=== PATIENT | male | born 1995 | race Two or more races ===

== ENCOUNTER 2016-12-26 23:02 | Emergency (ER) | payer OTHER ==
[2016-12-26 23:11] VITALS: BP 138/62; PULSE 77; TEMP 98.6; BMI 22.3
--- NOTE | 2016-12-27 00:40 | PDOC ---
History of Present Illness - General History Source: Patient Exam Limitations: No Limitations - History of Present Illness Initial Comments: 12/27/16 01:28 21-year-old male with no medical history presents to the emergency department complaining of a sore throat times approximately one week without fever, chills , nausea/vomiting, rhinorrhea, difficulty swallowing, chest pain, shortness of breath, abdominal pains. Patient denies any drooling or muffle voice. Timing/Duration: 1 week Associated Symptoms: denies: cough, fever/chills <Saurabh Sykes - Last Filed: 12/27/16 01:27> <Cricket Hanna - Last Filed: 12/27/16 08:05> - General Chief Complaint: Sore Throat Stated Complaint: SORE THROAT Time Seen by Provider: 12/26/16 23:14 Past History - Past Medical History Anemia: No Asthma: No Cancer: No Cardiac Disorders: No CVA: No COPD: No CHF: No Dementia: No Diabetes: No GI Disorders: No Disorders: No HTN: No Hypercholesterolemia: No Kidney Stones: No Liver Disease: No Seizures: No Thyroid Disease: No - Surgical History Abdominal Surgery: No Appendectomy: No Cardiac Surgery: No Cholecystectomy: No Lung Surgery: No Neurologic Surgery: No Orthopedic Surgery: No - Reproductive History Testicular Surgery: No - Suicide/Smoking/Psychosocial Hx Smoking History: Current every day smoker Have you smoked in the past 12 months: Yes Number of Cigarettes Smoked Daily: 10 Cigars Per Day: 0 Information on smoking cessation initiated: No 'Breaking Loose' booklet given: 05/19/16 Hx Alcohol Use: Yes (2 beers daily) Drug/Substance Use Hx: Yes (Marijuana) Substance Use Type: Alcohol, Marijuana Hx Substance Use Treatment: No <Saurabh Sykes - Last Filed: 12/27/16 01:27> <Cricket Hanna - Last Filed: 12/27/16 08:05> - Past Medical History Allergies/Adverse Reactions: Allergies Allergy/AdvReac Type Severity Reaction Status Date / Time No Known Allergies Allergy Verified 12/26/16 23:09 Home Medications: Ambulatory Orders Amoxicillin/Potassium Clav [Augmentin 875-125 Tablet] 1 each PO BID #10 tablet 12/27/16 Amoxicillin/Potassium Clav [Augmentin 875-125 Tablet] 1 each PO BID #20 tablet 12/27/16 Review of Systems - Review of Systems Able to Perform ROS?: Yes Comments:: 12/27/16 01:28 CONSTITUTIONAL: Absent: fever, chills, diaphoresis, generalized weakness, malaise, loss of appetite HEENT: +throat pain Absent: rhinorrhea, nasal congestion, throat swelling, difficulty swallowing, mouth swelling, ear pain, eye pain, visual Changes CARDIOVASCULAR: Absent: chest pain, loss of consciousness, palpitations, irregular heart rate, peripheral edema RESPIRATORY: Absent: cough, shortness of breath, dyspnea with exertion, orthopnea, wheezing, stridor, hemoptysis GASTROINTESTINAL: Absent: abdominal pain, abdominal distension, nausea, vomiting, diarrhea, constipation, melena, hematochezia GENITOURINARY: Absent: dysuria, frequency, urgency, hesitancy, hematuria, flank pain, genital pain MUSCULOSKELETAL: Absent: myalgia, arthralgia, joint swelling SKIN: Absent: rash, itching, pallor HEMATOLOGIC/IMMUNOLOGIC: Absent: easy bleeding, easy bruising, lymphadenopathy, frequent infections Is the patient limited Congolese proficient: No <Saurabh Sykes - Last Filed: 12/27/16 01:27> *Physical Exam - Vital Signs Last Vital Signs Temp Pulse Resp BP Pulse Ox 98.6 F 77 19 138/62 99 12/26/16 23:09 12/26/16 23:09 12/26/16 23:09 12/26/16 23:09 12/26/16 23:09 - Physical Exam Comments: 12/27/16 01:29 GENERAL: Well developed, well nourished. Awake and alert. No acute distress. HEENT: B/L tonsils enlarged without erythema/exidate/abscess Normocephalic, atraumatic. PERRLA, EOMI. No conjunctival pallor. Sclera are non- icteric. Moist mucous membranes. NECK: Supple. Full ROM. No JVD. Carotid pulses 2+ and symmetric, without bruits. No thyromegaly. No lymphadenopathy. CARDIOVASCULAR: Regular rate and rhythm. No murmurs, rubs, or gallops. Distal pulses are 2+ and symmetric. PULMONARY: No evidence of respiratory distress. Lungs clear to auscultation bilaterally. No wheezing, rales or rhonchi. <Saurabh Sykes - Last Filed: 12/27/16 01:27> - Vital Signs Last Vital Signs Temp Pulse Resp BP Pulse Ox 98.6 F 77 19 138/62 99 12/26/16 23:09 12/26/16 23:09 12/26/16 23:09 12/26/16 23:09 12/26/16 23:09 <Cricket Hanna - Last Filed: 12/27/16 08:05> ED Treatment Course - ADDITIONAL ORDERS Additional order review: 12/26/16 23:14 Group A Strep Rapid Antigen - Final Throat <Saurabh Sykes - Last Filed: 12/27/16 01:27> - ADDITIONAL ORDERS Additional order review: 12/26/16 23:14 Group A Strep Rapid Antigen - Final Throat - Medications Given in the ED: ED Medications Discontinued Medications Generic Name Dose Route Start Last Admin Trade Name Franc PRN Reason Stop Dose Admin Amoxicillin/Clavulanate Potassium 1 tab 12/27/16 00:56 12/27/16 01:04 Augmentin - 875mg Tablet PO 12/27/16 00:57 1 tab ONCE ONE Administration Dexamethasone Sodium Phosphate 10 mg 12/27/16 00:56 12/27/16 01:04 Decadron Injection - IM 12/27/16 00:57 10 mg ONCE ONE Administration <Cricket Hanna - Last Filed: 12/27/16 08:05> Medical Decision Making - Medical Decision Making 12/27/16 08:05 The patient was seen and evaluated in conjunction with MIKEY Sykes under my direct supervision, ancillary studies were reviewed. I agree with the plan as outlined by MIKEY Sykes. <Cricket Hanna - Last Filed: 12/27/16 08:05> *DC/Admit/Observation/Transfer - Discharge Dispostion Admit: No <Saurabh Sykes - Last Filed: 12/27/16 01:27> <Cricket Hanna - Last Filed: 12/27/16 08:05> Diagnosis at time of Disposition: Tonsillitis - Discharge Dispostion Disposition: HOME Condition at time of disposition: Stable - Prescriptions Prescriptions: Amoxicillin/Potassium Clav [Augmentin 875-125 Tablet] 1 each PO BID #10 tablet Amoxicillin/Potassium Clav [Augmentin 875-125 Tablet] 1 each PO BID #20 tablet - Referrals Referrals: Roberto Sarmiento MD [Staff Physician] - - Patient Instructions Printed Discharge Instructions: DI for Pharyngitis/Tonsillopharyngitis -- Adult Additional Instructions: Gargle with salt water Take tylenol/Motrin as needed for pain Rx: Augmentin 1 tablet by mouth twice a day Decadron as prescribed Return back to the ER for severe/persistent/worsening symptoms, drooling
[2016-12-27] MEDS ORDERED: DEXAMETHASONE SOD PHOSPHATE 10 MG/1 ML VIAL IM ONE (00:56)
[2016-12-27] MEDS ORDERED: AMOX TR/POT CLAV 875MG/125MG TABLETS (FP) PO ONE (00:56)
[2016-12-27] MEDS ORDERED: DEXAMETHASONE SOD PHOSPHATE 10 MG/1 ML VIAL ONE (01:00)
[2016-12-27] MEDS ORDERED: AMOX TR/POT CLAV 875MG/125MG TABLETS (FP) ONE (01:00)
== END 2016-12-27 01:10 | disposition home or self-care (01) ==
LOC: JER 23:02
PROC: 3E033GC Introduction of Other Therapeutic Substance into Peripheral Vein, Percutaneous Approach (ICD-10-PCS; principal; 2016-12-26)
DX: J03.90 Acute tonsillitis, unspecified (principal)
CPT/HCPCS: 87070; 87430; 96372; 99281-25

== ENCOUNTER 2017-01-03 17:17 | Emergency (ER) | payer OTHER ==
[2017-01-03 17:55] VITALS: BP 120/69; PULSE 72; TEMP 98; BMI 22.3
--- NOTE | 2017-01-03 18:43 | PDOC ---
History of Present Illness - General Chief Complaint: Injury Stated Complaint: INJURY Time Seen by Provider: 01/03/17 18:09 History Source: Patient Exam Limitations: No Limitations - History of Present Illness Initial Comments: 01/03/17 18:41 CHIEF COMPLAINT: Inversion injury to left foot now with "bump" dorsum, medial aspect left foot HISTORY OF PRESENT ILLNESS: Patient is a 21-year-old male no significant medical history currently on no medication presents emergency Department with pain, bump to the dorsomedial aspect of the left foot. Patient is able to ambulate without difficulty, just concerned because of the "bump" there is no erythema, no edema, no bruising. Occurred: reports: yesterday Severity: Yes: moderate Lower Extremity Pain Location: left: foot Method of Injury: Yes: twisted Modifying Factors: improves with: cold therapy Lower Ext. Injury Location - Specific Injury Location Ankle: left pain, left swelling Extremity Pain Location - Extremity Pain Location Extremity Pain Locations: left: foot Past History - Past Medical History Allergies/Adverse Reactions: Allergies Allergy/AdvReac Type Severity Reaction Status Date / Time No Known Allergies Allergy Verified 12/26/16 23:09 Home Medications: Ambulatory Orders Amoxicillin/Potassium Clav [Augmentin 875-125 Tablet] 1 each PO BID #20 tablet 12/27/16 Ibuprofen [Motrin -] 600 mg PO QID #28 tablet 01/03/17 Anemia: No Asthma: No Cancer: No Cardiac Disorders: No CVA: No COPD: No CHF: No Dementia: No Diabetes: No GI Disorders: No Disorders: No HTN: No Hypercholesterolemia: No Kidney Stones: No Liver Disease: No Seizures: No Thyroid Disease: No - Surgical History Abdominal Surgery: No Appendectomy: No Cardiac Surgery: No Cholecystectomy: No Lung Surgery: No Neurologic Surgery: No Orthopedic Surgery: No - Reproductive History Testicular Surgery: No - Immunization History Immunization Up to Date: No - Suicide/Smoking/Psychosocial Hx Smoking History: Current every day smoker Have you smoked in the past 12 months: Yes Number of Cigarettes Smoked Daily: 20 Cigars Per Day: 0 Information on smoking cessation initiated: No 'Breaking Loose' booklet given: 05/19/16 Hx Alcohol Use: No Drug/Substance Use Hx: No Substance Use Type: Alcohol, Marijuana Hx Substance Use Treatment: No Review of Systems - Review of Systems Constitutional: No: Symptoms Reported HEENTM: No: Symptoms Reported Respiratory: No: Symptoms reported Cardiac (ROS): No: Symptoms Reported ABD/GI: No: Symptoms Reported : No: Symptoms Reported Musculoskeletal: No: Joint Pain, Joint Swelling, Muscle Pain, Muscle Weakness, Neck Pain, Joint Stiffness Integumentary: Yes: Other (raised area to the dorsal medial aspect of the right foot) Neurological: No: Symptoms reported, Paresthesia, Tingling, Tremors Hematologic/Lymphatic: No: Symptoms Reported All Other Systems: Reviewed and Negative *Physical Exam - Vital Signs Last Vital Signs Temp Pulse Resp BP Pulse Ox 98 F 72 18 120/69 100 01/03/17 17:52 01/03/17 17:52 01/03/17 17:52 01/03/17 17:52 01/03/17 17:52 - Physical Exam General Appearance: Yes: Appropriately Dressed. No: Apparent Distress Neck: negative: Tender lateral, Tender midline Respiratory/Chest: positive: Lungs Clear, Normal Breath Sounds Extremity: positive: Other (raised area without erythema to the dorsal medial aspect of the right foot.) Integumentary: positive: Normal Color, Dry. negative: Erythema, Swelling, Ecchymosis, Bruising Neurologic: positive: Fully Oriented, Alert, Normal Mood/Affect, Normal Response , Motor Strength 5/5 ED Treatment Course - RADIOLOGY Radiology Studies Ordered: Category Date Time Status ANKLE & FOOT-LEFT* [RAD] Stat Radiology 01/03/17 18:40 Ordered Medical Decision Making - Medical Decision Making 01/03/17 18:54 A/P: Patient here for evaluation of painful raised area to dorsal medial right foot. There is no erythema, edema or bruising. Patient sent to x-ray to evaluate 01/03/17 19:53 X-ray wet read is negative for acute fracture because of the patient's level of pain and soft tissue swelling will apply Nitesh wrap, surgical shoe, ice and elevate when at rest, follow-up with orthopedics if pain persists in one week. I discussed the physical exam findings, ancillary test results and final diagnoses with the patient. I answered all of the patient's questions. The patient was satisfied with the care received and felt comfortable with the discharge plan and treatment plan. The patient will call to arrange follow-up and will return to the Emergency Department with any new, persistent or worsening symptoms. *DC/Admit/Observation/Transfer Diagnosis at time of Disposition: Foot sprain Qualifiers: Encounter type: initial encounter Laterality: left Qualified Code(s): S93.602A - Unspecified sprain of left foot, initial encounter; S93.602A - Unspecified sprain of left foot, initial encounter - Discharge Dispostion Disposition: HOME Condition at time of disposition: Good Admit: No - Prescriptions Prescriptions: Ibuprofen [Motrin -] 600 mg PO QID #28 tablet - Referrals Referrals: Jg Donaldson MD [Staff Physician] - - Patient Instructions Additional Instructions: 1. Please return to the emergency department with any redness, swelling, increased pain, or any other concerns. 2. Keep splint on, call tomorrow [phone] or [phone] for official reading of Xray. 3. Please follow up in the office of Dr. Donaldson within a week if pain persists. 4. No weightbearing 5. Ice and elevate when at rest. 6. Motrin for pain - Post Discharge Activity Forms/Work/School Notes: Back to Work
== END 2017-01-03 20:07 | disposition home or self-care (01) ==
LOC: JERFT 17:17
DX: S93.602A Unspecified sprain of left foot, initial encounter (principal); F17.210 Nicotine dependence, cigarettes, uncomplicated; X50.1XXA Overexertion from prolonged static or awkward postures, initial encounter; Y93.89 Activity, other specified; Y92.89 Other specified places as the place of occurrence of the external cause; Y99.8 Other external cause status
CPT/HCPCS: 73610-TC-LT; 73630-TC-LT; 99281-25

== ENCOUNTER 2017-05-11 21:46 | Emergency (ER) | payer OTHER ==
[2017-05-11 22:14] VITALS: BP 127/57; PULSE 93; TEMP 98.5; BMI 21.6
--- NOTE | 2017-05-12 00:15 | PDOC ---
History of Present Illness - General Chief Complaint: Bite Stated Complaint: INSECT BITE Time Seen by Provider: 05/11/17 23:33 History Source: Patient Exam Limitations: No Limitations - History of Present Illness Initial Comments: CHIEF COMPLAINT: 21 y/o afebrile male c/o itchy bug bite to left hand since yesterday. HISTORY OF PRESENT ILLNESS: The patient is unsure of what bit him. He has not taken any medications. He is worried whatever bit him was poisonous or gave him MRSA. He denies f/c, n/v/d, streaking/redness/warmth to affected area. Past History - Past Medical History Allergies/Adverse Reactions: Allergies Allergy/AdvReac Type Severity Reaction Status Date / Time No Known Allergies Allergy Verified 05/11/17 22:07 Home Medications: Ambulatory Orders Amoxicillin/Potassium Clav [Augmentin 875-125 Tablet] 1 each PO BID #20 tablet 12/27/16 Ibuprofen [Motrin -] 600 mg PO QID #28 tablet 01/03/17 Anemia: No Asthma: No Cancer: No Cardiac Disorders: No CVA: No COPD: No CHF: No Dementia: No Diabetes: No GI Disorders: No Disorders: No HTN: No Hypercholesterolemia: No Kidney Stones: No Liver Disease: No Seizures: No Thyroid Disease: No Other medical history: Pt denies - Surgical History Abdominal Surgery: No Appendectomy: No Cardiac Surgery: No Cholecystectomy: No Lung Surgery: No Neurologic Surgery: No Orthopedic Surgery: No - Reproductive History Testicular Surgery: No - Immunization History Immunization Up to Date: No - Suicide/Smoking/Psychosocial Hx Smoking History: Never smoked Have you smoked in the past 12 months: Yes Number of Cigarettes Smoked Daily: 20 Cigars Per Day: 0 Information on smoking cessation initiated: No 'Breaking Loose' booklet given: 05/19/16 Hx Alcohol Use: No Drug/Substance Use Hx: No Substance Use Type: Alcohol, Marijuana Hx Substance Use Treatment: No Review of Systems - Review of Systems Able to Perform ROS?: Yes Constitutional: No: Fever Integumentary: Yes: Pruritus, Other (itchy bug bite to left middle finger and left wrist) *Physical Exam - Vital Signs Last Vital Signs Temp Pulse Resp BP Pulse Ox 98.5 F 93 H 20 127/57 98 05/11/17 22:07 05/11/17 22:07 05/11/17 22:07 05/11/17 22:07 05/11/17 22:07 - Physical Exam General Appearance: Yes: Nourished, Appropriately Dressed. No: Apparent Distress Integumentary: positive: Hives (one hive to left medial distal wrist and another hive to left dorsal 3rd digit. ), Other (No streaking. No edema to affected areas) Medical Decision Making - Medical Decision Making A/P: 21 y/o male with 2 hives secondary to bug bites. Offered benadryl but he says he will use hydrocortisone cream he has at home. Instructed him to return to the ER with any worsening or concerning symptoms including fever, streaking. The patient verbalizes understanding of all instructions, has no further questions and is awaiting discharge. *DC/Admit/Observation/Transfer Diagnosis at time of Disposition: Bug bite of left hand Qualifiers: Encounter type: initial encounter Qualified Code(s): S60.562A - Insect bite ( nonvenomous) of left hand, initial encounter; W57.XXXA - Bitten or stung by nonvenomous insect and other nonvenomous arthropods, initial encounter; W57.XXXA - Bitten or stung by nonvenomous insect and other nonvenomous arthropods, initial encounter - Discharge Dispostion Disposition: HOME Condition at time of disposition: Good - Referrals - Patient Instructions Printed Discharge Instructions: DI for Insect Bites and Stings, How to Care for an Insect Bite or Sting Additional Instructions: Discharge instructions: -Apply hydrocortisone or benadryl cream to affected area -Try not to scratch affected areas -Return to the ER with any worsening or concerning symptoms including fever, streaking. - Post Discharge Activity
== END 2017-05-12 00:50 | disposition home or self-care (01) ==
LOC: JER 21:46 → JERFT 21:46 → JER 05-12 00:50
DX: S60.862A Insect bite (nonvenomous) of left wrist, initial encounter (principal); S60.463A Insect bite (nonvenomous) of left middle finger, initial encounter; W57.XXXA Bitten or stung by nonvenomous insect and other nonvenomous arthropods, initial encounter; Y93.89 Activity, other specified; Y92.89 Other specified places as the place of occurrence of the external cause; Y99.8 Other external cause status; L50.9 Urticaria, unspecified
CPT/HCPCS: 99281-25

== ENCOUNTER 2019-01-24 18:10 | Emergency (ER) | payer OTHER ==
--- NOTE | 2019-01-24 18:17 | PDOC ---
Rapid Medical Evaluation Medical Evaluation: Allergies Allergy/AdvReac Type Severity Reaction Status Date / Time No Known Allergies Allergy Verified 05/11/17 22:07 01/24/19 18:13 CC: "His face is twisted" x1.5 hours PE: No facial droop. +tongue dyskinetic movements. Was in ER yesterday and was given ?sedation Orders: Benadryl The patient will proceed to the ER for continued Evaluation. 01/24/19 18:15 Discharge Disposition - Diagnosis Dystonia - Referrals - Patient Instructions - Post Discharge Activity
[2019-01-24 18:20] VITALS: BP 136/88; PULSE 100; BMI 21.6
[2019-01-24] MEDS ORDERED: DEXAMETHASONE SOD PHOSPHATE 10 MG/1 ML VIAL IVPUSH ONE (18:42)
--- NOTE | 2019-01-24 18:51 | PDOC ---
History of Present Illness - General Chief Complaint: Tongue Swelling Stated Complaint: FACE/TONGUE SWOLLEN Time Seen by Provider: 01/24/19 18:17 - History of Present Illness Initial Comments: The pt is a 23M w/ a history of polysubstance abuse (last EtOH yesterday) who presents for evaluation of 30 minutes of jaw tightness, tongue swelling, and infraorbital redness. He denies any new exposures/ingestions today. He denies known allergies and has never had this happen before. He states he was seen yesterday at [facility] where he received 'an injection in my arm and butt for agitation.' Denies fevers/chills, chest pain, trouble breathing, abdominal pain, N/V, recent illness or sick contact. 01/24/19 18:43 Past History - Past Medical History Allergies/Adverse Reactions: Allergies Allergy/AdvReac Type Severity Reaction Status Date / Time No Known Allergies Allergy Verified 01/24/19 18:18 Home Medications: Ambulatory Orders Amoxicillin/Potassium Clav [Augmentin 875-125 Tablet] 1 each PO BID #20 tablet 12/27/16 Ibuprofen [Motrin -] 600 mg PO QID #28 tablet 01/03/17 Anemia: No Asthma: No Cancer: No Cardiac Disorders: No CVA: No COPD: No CHF: No Dementia: No Diabetes: No GI Disorders: No Disorders: No HTN: No Hypercholesterolemia: No Kidney Stones: No Liver Disease: No Seizures: No Thyroid Disease: No - Surgical History Abdominal Surgery: No Appendectomy: No Cardiac Surgery: No Cholecystectomy: No Lung Surgery: No Neurologic Surgery: No Orthopedic Surgery: No - Reproductive History Testicular Surgery: No - Immunization History Immunization Up to Date: No - Psycho Social/Smoking Cessation Hx Smoking History: Current every day smoker Have you smoked in the past 12 months: Yes Number of Cigarettes Smoked Daily: 10 Cigars Per Day: 0 Information on smoking cessation initiated: No 'Breaking Loose' booklet given: 05/19/16 Hx Alcohol Use: Yes Drug/Substance Use Hx: No Substance Use Type: Alcohol, Marijuana Hx Substance Use Treatment: No Review of Systems - Review of Systems Able to Perform ROS?: Yes Comments:: GENERAL/CONSTITUTIONAL: No fever or chills. No weakness HEAD, EYES, EARS, NOSE AND THROAT: No change in vision. No change in hearing CARDIOVASCULAR: No chest pain RESPIRATORY: Denies cough, hemoptysis GASTROINTESTINAL: No nausea, vomiting, diarrhea or constipation GENITOURINARY: No dysuria, frequency, or change in urination MUSCULOSKELETAL: No joint or muscle swelling or pain. No neck or back pain SKIN: No rash NEUROLOGIC: No headache, vertigo, loss of consciousness, or change in strength/ sensation ENDOCRINE: No increased thirst. No abnormal weight change HEMATOLOGIC/LYMPHATIC: No anemia, easy bleeding, or history of blood clots ALLERGIC/IMMUNOLOGIC: No hives or skin allergy 01/24/19 18:46 Is the patient limited Romanian proficient: No *Physical Exam - Vital Signs Last Vital Signs Temp Pulse Resp BP Pulse Ox 100 H 18 136/88 98 01/24/19 18:13 01/24/19 18:13 01/24/19 18:13 01/24/19 18:13 - Physical Exam Comments: GENERAL: Awake, alert, and oriented to person/place/time, in no acute distress HEAD: No signs of trauma, normocephalic, atraumatic EYES: PERRLA, EOMI, sclera anicteric, conjunctiva clear ENT: Hearing grossly normal, nares patent; oropharyngeal erythema and exudate with trismus noted of jaw; no tongue swelling observed LUNGS: No distress, speaks in full sentences, clear to auscultation bilaterally HEART: Regular rate and rhythm, normal S1 and S2, no murmurs appreciated, peripheral pulses normal and equal bilaterally ABDOMEN: Soft, nontender, normoactive bowel sounds. No guarding, no rebound EXTREMITIES: Normal inspection, Normal range of motion, no edema. No clubbing or cyanosis NEUROLOGICAL: Cranial nerves II through XII grossly intact. Normal speech, normal gait, no focal sensorimotor deficits SKIN: Warm, Dry 01/24/19 18:46 ED Treatment Course - Medications Given in the ED: ED Medications Discontinued Medications Generic Name Dose Route Start Last Admin Trade Name Freq PRN Reason Stop Dose Admin Diphenhydramine HCl 50 mg 01/24/19 18:18 01/24/19 18:29 Benadryl Injection - IM 01/24/19 18:19 50 mg ONCE ONE Administration Medical Decision Making - Medical Decision Making The pt is a 23M w/ a history of polysubstance abuse (last EtOH yesterday) who presents for evaluation of 30 minutes of jaw tightness, tongue swelling, and infraorbital redness. Ddx: strep w/ trismus, dystonic reaction, less likely allergic reaction ED Course Benadryl given Decadron Rapid strep Pt signed out to night team 01/24/19 18:51 Discharge - Discharge Information Problems reviewed: Yes Clinical Impression/Diagnosis: Dystonia Condition: Stable - Admission No - Follow up/Referral - Patient Discharge Instructions - Post Discharge Activity
[2019-01-24] MEDS ORDERED: DEXAMETHASONE SOD PHOSPHATE 10 MG/1 ML VIAL ONE (19:01)
--- NOTE | 2019-01-24 19:19 | PDOC ---
Attending Attestation - Resident Resident Name: Vicente Dumont - ED Attending Attestation I have performed the following: I have examined & evaluated the patient, The case was reviewed & discussed with the resident, I agree w/resident's findings & plan, Exceptions are as noted - HPI HPI: 01/24/19 19:17 23 years old with past medical history significant for polysubstance abuse yesterday was at [facility] for agitation? Substance abuse received 2 injections to calm him down? Haldol? Ativan presents today with sensation of tongue swelling and contractions Vital signs within normal limits - Physicial Exam PE: 01/24/19 19:17 Vitals: Triage Vital signs reviewed General Appearance: No acute distress, well nourished well developed, Head: Atraumatic, Eyes: Pupils equal reactive round, extraocular movement intact Ears: TM's normal bilaterally; Nose: Nares patent bilaterally; no nasal congestion Throat: Posterior oropharynx with erythema and exudate, mucous membranes moist, tongue not edematous jaw with slight trismus but able to open mouth Neck: Supple; no Nucal rigidity Chest Wall: Nontender Cardiac: Regular rate and rhythym, no murmurs, no rubs, no gallops, Lungs: Clear to auscultation bilateral, good air movement bilaterally, Abdomen: Soft, non distended, normal bowel sounds, non tender to palpation Extremities: Full range of motion to all extremities, no cyanosis, clubbing, or edema Skin: Warm and dry, no rashes or lesions, no rash, no petechiae Neuro: AOX3; cranial Nerves 2-12 grossly intact, strength intact to all extremities, sensation intact to all extremities, gait normal - Medical Decision Making 01/24/19 19:18 No tongue swelling on examination patient with mild trismus and slightly enlarged tonsils with exudate Differential diagnosis includes dystonic reaction versus trismus secondary to strep throat Decadron ordered strep culture ordered Dr. Lu to follow up results reasses and dispo
--- NOTE | 2019-01-24 20:44 | PDOC ---
*Physical Exam - Vital Signs Last Vital Signs Temp Pulse Resp BP Pulse Ox 100 H 18 136/88 98 01/24/19 18:13 01/24/19 18:13 01/24/19 18:13 01/24/19 18:13 ED Treatment Course - Medications Given in the ED: ED Medications Discontinued Medications Generic Name Dose Route Start Last Admin Trade Name Franc PRN Reason Stop Dose Admin Dexamethasone Sodium Phosphate 10 mg 01/24/19 18:42 01/24/19 19:15 Decadron Injection - IVPUSH 01/24/19 18:43 10 mg ONCE ONE Administration Diphenhydramine HCl 50 mg 01/24/19 18:18 01/24/19 18:29 Benadryl Injection - IM 01/24/19 18:19 50 mg ONCE ONE Administration Medical Decision Making - Medical Decision Making 01/24/19 20:44 Strep negativ enad patient doing well. will DC with steroids and PCP follow up. Discharge - Discharge Information Problems reviewed: Yes Clinical Impression/Diagnosis: Dystonia Condition: Stable Disposition: HOME - Admission No - Additional Discharge Information Prescriptions: Methylprednisolone [Medrol Dose Sherwin] 4 mg PO ASDIR #21 tablet - Follow up/Referral Referrals: [facility] [Provider Group] - Patient Discharge Instructions Patient Printed Discharge Instructions: DI for Pharyngitis/Tonsillopharyngitis -- Adult Additional Instructions: Please take the steroids as directed. Please avoid using nay other drugs. Please make a follow up with primary care as soon as possible. Please return to the ED if you have worsening swelling, pains, or other concerning symptoms. - Post Discharge Activity
== END 2019-01-24 21:01 | disposition home or self-care (01) ==
LOC: JER 18:10
PROC: 3E0333Z Introduction of Anti-inflammatory into Peripheral Vein, Percutaneous Approach (ICD-10-PCS; principal; 2019-01-24)
PROC: 3E023GC Introduction of Other Therapeutic Substance into Muscle, Percutaneous Approach (ICD-10-PCS; 2019-01-24)
DX: G24.8 Other dystonia (principal)
CPT/HCPCS: 87070; 87880; 96372; 96374; 99283-25; J1100

== ENCOUNTER 2021-04-26 14:44 | Emergency (ER) | payer OTHER ==
[2021-04-26 15:00] VITALS: BP 101/63; PULSE 84; TEMP 97.4; BMI 22.3
== END 2021-04-26 18:35 | disposition home or self-care (01) ==
LOC: JERFT 14:44
DX: I89.1 Lymphangitis (principal)
CPT/HCPCS: 99281-25

== ENCOUNTER 2021-06-10 08:03 | Emergency (ER) | payer OTHER ==
[2021-06-10 08:24] VITALS: BP 151/88; PULSE 92; TEMP 97.9; BMI 22.3
== END 2021-06-10 08:57 | disposition home or self-care (01) ==
LOC: JERFT 08:03 → JER 08:03 → JERFT 08:57
DX: S10.92XA Blister (nonthermal) of unspecified part of neck, initial encounter (principal); W57.XXXA Bitten or stung by nonvenomous insect and other nonvenomous arthropods, initial encounter
CPT/HCPCS: 99281-25

== ENCOUNTER 2022-01-02 22:10 | Emergency (ER) | payer OTHER ==
[2022-01-02 22:18] VITALS: BP 141/83; PULSE 90; RESP 18; TEMP 98; BMI 21.2
[2022-01-02] MEDS ORDERED: DIPHTH,PERTUSS(ACELL),TET 0.5 ML DISP.SYRIN IM ONE ×2 (23:41→23:45)
== END 2022-01-03 00:22 | disposition left against medical advice (07) ==
LOC: JER 22:10 → JERFT 22:10 → JER 01-03 00:22
PROC: 3E0234Z Introduction of Serum, Toxoid and Vaccine into Muscle, Percutaneous Approach (ICD-10-PCS; principal; 2022-01-02)
DX: M79.673 Pain in unspecified foot (principal)
CPT/HCPCS: 73630-TC-RT-FY; 90715; 99284-25

== ENCOUNTER 2022-01-05 13:02 | Emergency (ER) | payer OTHER ==
[2022-01-05 14:04] VITALS: BP 131/73; PULSE 97; RESP 18; TEMP 98.7; BMI 20.9
== END 2022-01-05 15:49 | disposition home or self-care (01) ==
LOC: JER 13:02 → JERFT 13:02
DX: S91.331A Puncture wound without foreign body, right foot, initial encounter (principal); W45.0XXA Nail entering through skin, initial encounter
CPT/HCPCS: 73630-TC-RT-FY; 99283-25